=== PATIENT | female | born 1995 | race Caucasian/White ===

== ENCOUNTER 2016-11-14 10:10 | Emergency (ER) | payer OTHER ==
[2016-11-14] MEDS ORDERED: IBUPROFEN 800 MG TABLET ONE (16:01)
[2016-11-14] MEDS ORDERED: CYCLOBENZAPRINE HCL 10 MG TABLET ONE (16:01)
[2016-11-14] MEDS ORDERED: DIPH/PERTUSS(ACELL)/TETANUS VAC/PF 0.5 ML SYR (>=10YO) IM ONE (16:11)
== END 2016-11-14 17:05 | disposition home or self-care (01) ==
LOC: ER 10:10
DX: S00.83XA Contusion of other part of head, initial encounter (principal); S40.012A Contusion of left shoulder, initial encounter; S80.02XA Contusion of left knee, initial encounter; S50.02XA Contusion of left elbow, initial encounter; S50.311A Abrasion of right elbow, initial encounter; V43.52XA Car driver injured in collision with other type car in traffic accident, initial encounter; R51 Headache; M25.512 Pain in left shoulder; M54.2 Cervicalgia; M25.521 Pain in right elbow; R42 Dizziness and giddiness
CPT/HCPCS: 72050; 90471; 99283